=== PATIENT | female | born 1955 | race Caucasian/White ===

== ENCOUNTER 2016-12-09 19:34 | Inpatient (IN) | payer BC ==
[~2016-12-09] VITALS: Ht 152.4 cm; Wt 58.0 kg
--- NOTE | ~2016-12-09 | CO ---
Unit #: [id number] #: [id number] Patient: SHAYNA ORTEGA [id number] [facility] [address] [facility]. [place], [place] [address] [id number] I MR#: [id number] NAME: SHAYNA ORTEGA. ROOM: [facility] Age: 61 Sex: F Admission Date: 12/09/2016 : 1955 Attending Physician: Citlalli Ribeiro M.D. Primary Care Physician: Isis Stock A.P.R.N. Consultation Date: 12/12/2016 CONSULTATION REPORT REASON FOR CONSULTATION Depression, suicide attempt by taking overdose. HISTORY OF PRESENT ILLNESS Ms. Shayna Ortega is a 61-year-old white female, seen in ICU-2, bed 7 at [facility] on 12/12/2016. The patient dressed in hospital attire, lying comfortably in bed. The patient has a sitter, able to answer questions appropriately, made good eye contact. The patient reported that she was under lot of stress and she took overdose of pills. The patient reports that she lives with her son, who is very supportive in 40s. Denied any use of any drugs or alcohol. Denied any hallucination. Currently, denied any suicidal ideation, but admitted recent suicide attempt. The patient's vital signs; temperature 98.2, heart rate 115, respirations 22, blood pressure 144/88, and oxygen saturation 94%. PAST PSYCHIATRIC HISTORY Longstanding history of depression, anxiety, and history of outpatient followup with Dr. Rodriguez in outpatient clinic at [facility]. The patient reported one other previous suicide attempt by taking an overdose in the past. MEDICAL HISTORY Remarkable for history of anxiety and depression. MEDICATION HISTORY The patient is on clonazepam, gabapentin, Paxil, Seroquel, dosage unknown. FAMILY HISTORY AND SOCIAL HISTORY The patient reports that she has a good support system from family. No history of any abuse. No history of any substance abuse, but according to the intake report history of substance abuse. The patient's urine drug screen was positive for benzodiazepine, marijuana, TCA. REVIEW OF SYSTEMS Complete review of system is unremarkable except as mentioned above. MENTAL STATUS EXAMINATION Vital signs, please see above. General appearance; the patient dressed casually in hospital attire, lying comfortably in bed in a propped up position, made good eye contact, cooperative. Attention span and concentration, fair. Speech, regular rate and somewhat rapid. Oriented in time, place, and person. Mood and affect, labile. Thought process, circumstantial. Thought content, denied any suicidal ideation at this time, but suicide attempt by taking an overdose. The patient denied any Unit #: [id number] #: [id number] Patient: SHAYNA ORTEGA hallucination, but reported severe anxiety, still feeling sad and depressed. Recent and remote memory, fair. Language, intact. Fund of knowledge, fair. Insight and judgment, fair to slightly impaired. DIAGNOSES Psychiatric: Major depressive disorder, recurrent, severe, F33.2; anxiety disorder, not otherwise specified, F40.01; cannabis abuse, moderate, F12.20. Secondary diagnosis: Deferred. Medical diagnosis: Please refer to H and P. Stressors: Psychosocial stressor. ASSESSMENT/PLAN 1. Supportive psychotherapy and psychoeducation provided to the patient. 2. Educated about benefits and side effects of medication and course and prognosis of illness. 3. Advised to resume medication slowly. Continue with one-to-one monitoring. Continue with the 72 hour hold. Plan to stabilize the patient and consider transferring the patient to [facility] inpatient treatment for psychiatric stabilization. Please feel free to call if any questions, telephone #[phone]. Dictated by... Neelam Newman/citlali TD: 12/12/2016 23:09 JOB #: [id number] CONSULTATION REPORT Page 1 of 1 X Ramy Zepeda MD X CONSULTATION REPORT
--- NOTE | ~2016-12-09 | FU ---
[facility] Nutrition Therapy DATE: 12/13/16 Patient: MASON BALL Physician: MORCAR Address: [address] [place] [address] Room/Bed: [address] [place] [address], Zip: [place] [address] Admit Date: 12/09/16 Date of : [birth year] Height: 5 0 Weight: 127 58 NUTRITION MONITORING/FOLLOW-UP: Reason: Nutrition follow-up Admitting dx: 61 y/o female admitted with OD/respiratory failure Anthropometrics: Ht: 60", admission wt: 58 kg, current wt: 58 kg, BMI: 25 (overweight) Labs: Glucose 156, AST 43 Meds: PPI, miralax, solu-medrol, kcl, mgso4, zofran prn GI: BM 12/12, denies N/V Skin: No issues, no edema Assessment: Chart reviewed, events noted. Patient extubated on 12/11, has been on 72 hr hold since extubation, plan after hold is for OLOP. She is tolerating a regular diet with no chewing/swallowing difficulties, reports consuming 75-100% of meals which sitter in room confirms. States she does not like the vanilla Ensure and does not wish to receive them any longer- will D/C. Weight stable, glucose well controlled/lytes WNL. See nutrition dx and goals below. Dx: Inadequate protein energy intake r/t clinical condition, ventilator dependence AEB NPO status - RESOLVED No new nutrition diagnosis Intervention: D/C oral supps Monitoring, Evaluation and Goals: 1. EN to meet nutritional needs - NO LONGER RELEVANT 2. Improvement in labs - MET New goal: PO intake > 50% of meals. Recommendations: Continue regular diet, D/C Ensure shakes. Status: Mild nutrition risk [facility] Nutrition Therapy DATE: 12/13/16 Patient: MASON BALL Physician: MORCAR Address: [address] [place] [address] Room/Bed: [address] [place] [address], Zip: [place] [address] Admit Date: 12/09/16 Date of : [birth year] Height: 5 0 Weight: 127 58 Respectphil, Marie Fischer, NURY, LD Food and Nutritional Services [facility] cc: client file
--- NOTE | ~2016-12-09 | EKG ---
PATIENT: MASON BALL UNIT #: [id number] Ventricular Rate: 119 BPM Atrial Rate: 119 BPM P-R Interval: 138 ms QRS Duration: 72 ms Q-T Interval: 338 ms QTC Calculation(Bezet): 475 ms P [place]: 88 degrees Calculated R [place]: 69 degrees Calculated T [place]: 82 degrees Diagnosis Line: Sinus tachycardia Diagnosis Line: Biatrial enlargement Diagnosis Line: Septal infarct (cited on or before 09-DEC-2016) Diagnosis Line: Abnormal ECG Diagnosis Line: When compared with ECG of 03-APR-2013 00:54, Diagnosis Line: Vent. rate has increased BY 42 BPM Diagnosis Line: Non-specific change in ST segment in Inferior Diagnosis Line: leads Diagnosis Line: ST now depressed in Anterior leads Diagnosis Line: Confirmed by SERGIO BARR MD ([id number]) on Diagnosis Line: 12/11/2016 11:15:07 PM INTERPRETING MD: MOMO MUNOZ
--- NOTE | ~2016-12-09 | CR72 ---
[facility] A Service of [facility] RADIOLOGY TEXT RESULTS PATIENT: MASON BALL LOCATION: [address] : [birth year] UNIT #: [id number] AGE: [address]: aT Ronquillo MD SEX: F ORDER DR: [id number] [facility] [address] [facility] [address] [place], [place] [address] [id number] I MR#: [id number] Acc #: [id number] NAME: MASON BALL. : 1955 SEX: F STUDY DATE/TIME: 12/11/2016 04:30 UNIT: [facility] ROOM: [facility] STUDY DESCRIPTION: CR Chest Single View Portable Attending Physician: Ta Ronquillo M.D. Ordering Physician: Mohan Greer M.D. Primary Care Physician: Isis Stock A.P.R.N. MEDICAL IMAGING REPORT This report is preliminary unless electronic signature is present EXAM Portable chest, 12/11 at 04:30 INDICATION Respiratory failure. Overdose 2 days ago. FINDINGS AP portable chest is compared with 12/09/2016. The lungs are emphysematous but clear. No pneumothorax. Heart size normal. ET tube mid trachea. Dictated by... Petr Courtney Jr., M.D. THIS IS AN ELECTRONICALLY VERIFIED REPORT Petr Courtney Jr., M.D. at 12/11/2016 9:23 PM CARLTON/sky TD: 12/11/2016 15:59 JOB #: [id number] MEDICAL IMAGING REPORT Page 1 of 1 COPY
--- NOTE | ~2016-12-09 | HP ---
Unit #: [id number] #: [id number] Patient: MASON BALL [id number] [facility] [address] [facility]. [place], [place] [address] [id number] I MR#: [id number] NAME: MASON BALL. ROOM: [facility] Age: 61 Sex: F Admission Date: 12/09/2016 : 1955 Attending Physician: Ta Ronquillo M.D. Primary Care Physician: Isis Stock A.P.R.N. HISTORY AND PHYSICAL CHIEF COMPLAINT Drug overdose, change in mental status. DISCUSSION This is a 61-year-old female with history of anxiety, depression, bipolar, (she follows with a psychiatrist), history of chronic pain issues, arthritis. She was brought to the emergency room by EMS. EMS was called by her . She was found to be confused. On arrival by EMS, the patient was somnolent. She was given some Narcan, and she was brought to the ER. In the ER she was found to be obtunded, unable to protect her airway, and she has been intubated, on vent. The , who lives with her, is at the bedside. He said that he had been in the hospital recently, had a couple of surgeries, and she has been alone at home. She has been going through a lot. She has a son, who is in home incarceration program currently. She has been undergoing stress with him, also. Today she had an argument with a neighbor. He said we went today to [facility], and she jumped out of the car. She went upstairs. When I went there, she told him, "I will see you on the other side," and then she was found to be confused. He called EMS, and she was brought to the ER. Her Seroquel bottle was found to be empty, which was refilled a long time ago. She had also refilled Klonopin yesterday, but 30 pills were missing, but the Seroquel bottle was also empty, but it was filled 7 months ago. PAST MEDICAL HISTORY As per the , she has history of anxiety, depression, psychiatric issues with bipolar disorder, follows with a psychiatrist). She has history of previous suicide attempts. She has history of substance abuse. PAST SURGICAL HISTORY History of tubal ligation, tonsillectomy. MEDICATIONS FROM HOME 1. Clonazepam. 2. Gabapentin. 3. Paxil. 4. Seroquel, dose unknown. FAMILY HISTORY Unable to obtain from the patient. SOCIAL HISTORY Unit #: [id number] #: [id number] Patient: MASON BALL As per , she smokes 2 packs daily. She uses marijuana. REVIEW OF SYSTEMS Review of systems is unobtainable from the patient. She is on the vent. PHYSICAL EXAMINATION GENERAL: Middle-aged female currently on the vent. VITALS: She is afebrile. Pulse 123, respirations 16. Recent vitals are following - Heart rate 101, respirations 17, blood pressure 91/51, oxygen saturation 100% on the vent. HEENT: Pupils are equal and reactive to light. Head is normocephalic and atraumatic. NECK: Neck is supple. No JVD. LUNGS: Lungs are clear to auscultation. No rhonchi. No wheezing. HEART: S1, S2. Regular rhythm. Tachycardia. ABDOMEN: Abdomen is soft, nontender. EXTREMITIES: Inspection is normal. No cyanosis. No clubbing. No edema. NEUROLOGIC: Unable to do neuro exam. DIAGNOSTIC STUDIES LABORATORY WORKUP: Her urine drug screen is positive for benzodiazepine, positive for marijuana, positive for TCA. Chemistry - Sodium 137, potassium 3.6, chloride 104, CO2 23, glucose 161, BUN 20, creatinine 1.6. LFTs within normal limits. Acetaminophen less than 10, salicylate less than 4, alcohol less than 5. INR is 1. ABG - pH 7.358, CO2 37, pO2 48. Troponin less than 0.05. IMAGING: Chest x-ray shows no infiltrate. ASSESSMENT AND PLAN 1. Drug overdose. Urine toxicology positive for marijuana, positive for benzodiazepine, positive for tricyclic antidepressant. 2. Respiratory failure, on the vent. 3. History of anxiety and depression/bipolar. 4. Chronic pain. 5. Deep venous thrombosis and gastrointestinal prophylaxis. Will place the patient on Protonix and Lovenox. 6. Admit the patient to intensive care unit. 7. Continue vent. 8. Ask pulmonary, Dr. Greer, for management. 9. Keep NPO at this time. Dictated by Maykel Dong M.D. JULIETH/jaylen TD: 12/10/2016 10:27 JOB #: [id number] Unit #: [id number] #: [id number] Patient: MASON BALL HISTORY AND PHYSICAL Page 1 of 1 X X HISTORY AND PHYSICAL
--- NOTE | ~2016-12-09 | DS ---
Unit #: [id number] #: [id number] Patient: MASON ORTEGA [id number] [address] [facility]. [place], [place] [address] [id number] I MR#: [id number] NAME: MASON ORTEGA. ROOM: 335 Age: Sex: F Admission Date: 12/09/2016 : 1955 Discharge Date: Attending Physician: Citlalli Ribeiro M.D. Primary Care Physician: Isis Stock A.P.R.N. DISCHARGE SUMMARY PRINCIPAL DIAGNOSES 1. Acute hypoxic respiratory failure secondary to #2. 2. Polysubstance overdose and suicide attempt including tricyclic antidepressants, benzodiazepines, Seroquel, and marijuana. 3. Aspiration pneumonia, right-sided. 4. Acute chronic obstructive pulmonary disease exacerbation. 5. Hypokalemia. 6. Nonanion-gap metabolic acidosis, now resolved. 7. Thrombocytopenia, now resolved. 8. Hypertension. 9. Bipolar disorder with depression. 10. Mild to moderate tricuspid regurgitation. 11. Tobaccoism. 12. Moderate protein malnutrition. CONSULTANTS 1. Dr. Perkins, Pulmonology. 2. Dr. Zepeda, Psychiatry. PROCEDURES 1. A two-dimensional echocardiogram on December 11, 2016, with ejection fraction of 55%. Mild to moderate tricuspid regurgitation noted. Mild dilatation of aortic root noted. 2. Chest x-ray on December 09, 2016, with no airspace infiltrates. 3. Chest x-ray on December 11, 2016, with emphysematous changes of the lungs. No acute exacerbation. CLINICAL HISTORY AND HOSPITAL COURSE Ms. Ortega is a 61-year-old female brought to the emergency department via EMS after she was found to have decreased mental status at home. Patient made suicidal statements to her prior to taking several medications including Klonopin and Seroquel. Patient was found to have respiratory depression in the emergency department and altered mental status and subsequently required intubation. She was admitted to the ICU. Dr. Perkins was consulted. Patient was started on empiric IV steroids due to an associated COPD exacerbation in addition to IV antibiotics due to a right-sided aspiration pneumonia. Fortunately, patient's mental status improved rather rapidly with only supportive measures, and she was subsequently extubated. After extubation, she has progressed well from a respiratory standpoint. She now has normal oxygen saturations in the high 90s on room air and has minimal wheezing. Will taper steroids very quick on an outpatient. Will also complete a course of antibiotics for associated aspiration pneumonia. Unit #: [id number] #: [id number] Patient: MASON ORTEGA When patient was awake, Psychiatry was consulted. Patient does admit to taking medications in an attempt to hurt herself. She has been under a significant amount of stress at home. The plan is for patient to be transferred to [facility] for further treatment of her underlying depression. I will note, patient was on Seroquel and Paxil at home but has not been taking these for four to five months according to her. However, she has been filling Klonopin every month. I placed her on a lower dose of Klonopin here, and further adjustment in medications can be done at [facility]. Today, patient is awake and alert. She is eating, ambulating to the restroom, not having any difficulty, and will be transferred to [facility]. DISCHARGE CONDITION Stable. DISCHARGE STATUS Transfer to [facility]. DISCHARGE MEDICATIONS 1. Klonopin 1 mg p.o. b.i.d. 2. Restoril 15 mg p.r.n. at bedtime for insomnia. 3. Norvasc 10 mg daily. 4. Augmentin 875 mg p.o. b.i.d. to stop after dose on December 17, 2016. 5. Prednisone 40 mg x1 on December 14, then 20 mg daily on December 15, then discontinue. 6. ProAir HFA 1-2 puffs every 4 hours p.r.n. for shortness of breath. DISCHARGE INSTRUCTIONS 1. Patient is instructed to follow a regular diet. 2. She is to refrain from any further tobacco, illicit drug use, or inappropriate medication use. FOLLOWUP Patient will follow up with her primary care provider, Isis Stock, upon discharge from [facility]. Dictated by... Citlalli Ribeiro M.D. Salo TD: 12/13/2016 14:03 JOB #: [id number] DISCHARGE SUMMARY Page 1 of 1 X Citlalli Ribeiro MD DISCHARGE SUMMARY
--- NOTE | ~2016-12-09 | A ---
[facility] Nutrition Therapy DATE: 12/10/16 Patient: MASON BALL Physician: MORCAR Address: [address] [place] [address] Room/Bed: [address], Zip: [place] [address] Admit Date: 12/09/16 Date of : [birth year] Height: 5 0 Weight: 127 58 NUTRITIONAL ASSESSMENT: REASON: NPO STATUS IN ICU, intubated 61 yo female admitted for OD and respiratory failure PMH: Anxiety, depression, bipolar disorder, smoker Anthropometrics: Ht: 5'0" Wt: 58 kg BMI: 25 Labs: K+ 3.3 Cl- 112 Gluc 134 Ca++ 7.9 Alb 3.3 Meds: Propofol @ 9.4 mL/hr, D5%, protonix, MgSO4, KCl, NaCl, zofran I/O & Bowel function: 998/315, last BM unknown Skin Integrity: no breakdown or edema noted Estimated Nutrition Needs: [id number] kcals (25-30 kcals/kg) 70-87 grams protein (1.2-1.5 grams/kg) Fluids consistent with kcal needs or per MD Diet: NPO Assessment: Chart reviewed, events noted. 61 yo female admitted for OD and respiratory failure. Pt is intubated and sedated in the ICU. Propofol is providing an additional 248 kcals from lipids at this time. RN reports that ventilator wean will likely be attempted today or tomorrow. No plans for nutrition support at this time. No family in room to provide nutritional history. Please see recommendations below. Dx: Inadequate protein-energy intake RT clinical condition, ventilator dependence AEB NPO status. Intervention: 1. EN if the pt remains intubated Monitoring, Evaluation and Goals: 1. Enteral nutrition; initiate if the pt remains intubated 2. Improve labs; K+, glucose Recommendations: 1. If the pt remains intubated, recommend initiating enteral nutrition with Jevity 1.5 @ [facility] Therapy DATE: 12/10/16 Patient: MASON BALL Physician: MORCAR Address: [address] [place] [address] Room/Bed: [address], Zip: [place] [address] Admit Date: 12/09/16 Date of : [birth year] Height: 5 0 Weight: 127 58 25 mL/hr + 30 mL Prostat once daily. Increase by 10 mL q 8 hrs as tolerated to goal of 35 mL/hr + 30 mL Prostat once daily to provide: 1608 kcals (total with propofol)/ 69 grams protein/ 638 mL free H20 Free H20 flushes per MD 2. Once propofol is discontinued, increase Jevity 1.5 to 45 ml/hr and D/C Prostat. This would provide: 1620 kcals/ 69 grams protein/ 821 mL free H20 3. If the pt is extubated, recommend CATERPILLAR TRACTOR OPERATOR evaluation (if pt intubated for >24 hrs). Advance diet per CATERPILLAR TRACTOR OPERATOR recommendations. No additional dietary restrictions recommended at this time. Pt is at moderate-severe nutritional risk. RD will follow hospital course per protocol. Respectfully, NISHI MCCLAIN RD, LD Food and Nutritional Services [facility] cc: client file
--- NOTE | ~2016-12-09 | CR72 ---
[facility] Service of [facility] RADIOLOGY TEXT RESULTS PATIENT: MASON BALL LOCATION: [address] : [birth year] UNIT #: [id number] AGE: [address]: Ta Ronquillo MD SEX: F ORDER DR: [id number] [facility] [address] [facility] [address] [place], [place] [address] [id number] I MR#: [id number] Acc #: [id number] NAME: MASON BALL. : 1955 SEX: F STUDY DATE/TIME: 12/09/2016 20:02 UNIT: [facility] ROOM: [facility] STUDY DESCRIPTION: CR Chest Single View Portable Attending Physician: Ta Ronquillo M.D. Ordering Physician: Ed Doctor [id number] [facility] Primary Care Physician: Isis Stock A.P.R.N. MEDICAL IMAGING REPORT This report is preliminary unless electronic signature is present EXAM Portable chest HISTORY ETT placement. FINDINGS ETT tip is 7.5 cm above the shahrzad. NG tube extends into the stomach. Mild hyperinflation of both lungs. No airspace infiltrates or effusions are identified. The superior lung apices are partly excluded. Dictated by... Kin Gagnon M.D. THIS IS AN ELECTRONICALLY VERIFIED REPORT Kin Gagnon M.D. at 12/10/2016 1:19 PM DFL/rnr TD: 12/10/2016 01:16 JOB #: [id number] MEDICAL IMAGING REPORT Page 1 of 1 COPY
--- NOTE | ~2016-12-09 | CO ---
Unit #: [id number] #: [id number] Patient: SHAYNA ORTEGA [id number] [address] [address] [id number] I MR#: [id number] NAME: SHAYNA ORTEGA. ROOM: 335 Age: 61 Sex: F Admission Date: 12/09/2016 : 1955 Attending Physician: Citlalli Ribeiro M.D. Primary Care Physician: Isis Stock A.P.R.N. Consultation Date: 12/13/2016 CONSULTATION REPORT REASON FOR CONSULTATION Followup. HISTORY OF PRESENT ILLNESS Ms. Shayna Ortega is a 61-year-old female, seen in room 335, bed 1, on 12/14/2016. The patient was admitted with overdose and transferred from intensive care unit to room 335. The patient was pleasant, cooperative. The patient has a sitter and able to eat good, reports anxiety/depression is better. The patient still somewhat anxious, wanted her medication to be increased. The patient's vital signs are stable. Currently denying any thoughts of harming self or others. Vital signs, 97.7, 104, 20, and 154/84. REVIEW OF SYSTEMS Complete review of systems is unremarkable. MENTAL STATUS EXAMINATION General appearance: Patient dressed in hospital attire sitting comfortably in bed eating her lunch. Speech, rapid in rate. Thought process, circumstantial. The patient's mood and affect labile. Thought process, the patient denied any thoughts of harming self or others, denied any psychotic symptoms. Thought process coherent. Recent and remote memory, fair. Language intact. Fund of knowledge fair. Insight and judgment fair to slightly impaired. DIAGNOSIS Major depressive disorder, recurrent, severe, F33.2. ASSESSMENT/PLAN 1. Supportive psychotherapy, psychoeducation provided to the patient. 2. Educated about benefits and side effects of medication, and course and prognosis of illness. 3. Advised to continue with current medication with the plan to consider transferring the patient to [facility] for inpatient psychiatric treatment and if needed consider further adjustment of medication. 4. Please feel free to call if any questions, telephone number [phone]. Unit #: [id number] #: [id number] Patient: SHAYNA ORTEGA Dictated by... Neelam Newman/nicanor TD: 12/14/2016 08:27 JOB #: [id number] CONSULTATION REPORT Page 1 of 1 X Ramy Zepeda MD CONSULTATION REPORT
--- NOTE | ~2016-12-09 | CR72 ---
[facility] A Service of [facility] & [facility] RADIOLOGY TEXT RESULTS PATIENT: MASON BALL LOCATION: [facility] [id number] : 57 UNIT #: [id number] AGE: [address]: Citlalli Ribeiro MD SEX: F ORDER DR: [id number] [facility] [address] [facility] [address] [place], [place] [address] [id number] I MR#: [id number] Acc #: [id number] NAME: MASON BALL. : 1955 SEX: F STUDY DATE/TIME: 12/12/2016 UNIT: [facility] ROOM: [facility] STUDY DESCRIPTION: CR Chest Single View Portable Attending Physician: Citlalli Ribeiro M.D. Ordering Physician: Mohan Greer M.D. Primary Care Physician: Isis Stock A.P.R.N. MEDICAL IMAGING REPORT This report is preliminary unless electronic signature is present EXAM Portable chest, 12/12/2016, at 03:59. INDICATIONS Overdose. Respiratory failure. Ventilator patient. FINDINGS AP portable chest compared with 12/11/2016. Heart size normal. Patient has been extubated and the NG tube has been removed. There is increasing infiltrate or atelectasis in the bases, right greater than left. There is a small right effusion. There is underlying emphysema. No pneumothorax. Dictated by... Petr Courtney Jr., M.D. THIS IS AN ELECTRONICALLY VERIFIED REPORT Petr Courtney Jr., M.D. at 12/12/2016 9:11 PM CARLTON/reginald TD: 12/12/2016 11:40 JOB #: [id number] MEDICAL IMAGING REPORT Page 1 of 1 COPY
--- NOTE | ~2016-12-09 | CO ---
Unit #: [id number] #: [id number] Patient: MASON BALL [id number] [address] [place], [place] [address] [id number] I MR#: [id number] NAME: MASON BALL. ROOM: [facility] Age: 61 Sex: F Admission Date: 12/09/2016 : 1955 Attending Physician: Ta Ronquillo M.D. Primary Care Physician: Isis Stock A.P.R.N. CONSULTATION REPORT REASON FOR CONSULTATION Critical care management and respiratory failure. CHIEF COMPLAINT Drug overdose. HISTORY OF PRESENT ILLNESS This 61-year-old female with past medical history of anxiety, depression, bipolar disorder, history of chronic pain, and arthritis presents with a complaint of altered mental status and did not respond to the Narcan and was intubated on the ventilator. The patient had an argument with the neighbor and went to the [facility] and she was found confused and her SEROquel bottle was found empty and had refilled a long time ago and there were 30 pills missing. I am seeing her at the bedside. Currently on a ventilator, intubated, and sedated. REVIEW OF SYSTEMS Unobtainable. PAST MEDICAL HISTORY Anxiety, depression, and bipolar disorder. SURGICAL HISTORY Tubal ligation and tonsillectomy. MEDICATIONS 1. Clonazepam. 2. Gabapentin. 3. Paxil. 4. SEROquel. FAMILY HISTORY Unable to obtain. PHYSICAL EXAMINATION VITAL SIGNS: Temperature 98, pulse 67, respirations 12, and blood pressure is 110/70. NEUROLOGIC: Sedated, intubated. HEENT: PERRLA. EOMI. NECK: Supple. No JVD. CHEST: Bilateral air entry. Bilateral mild rhonchi. GI: Nontender. Soft. Bowel sounds positive. EXTREMITIES: No edema. SKIN: No ulcer. Unit #: [id number] #: [id number] Patient: MASON BALL LYMPHATIC: No lymphadenopathy. DIAGNOSTIC STUDIES Labs and imaging have been reviewed. ASSESSMENT AND PLAN 1. Acute hypoxic respiratory failure. 2. Drug overdose. 3. Anxiety/depression. 4. Chronic pain. Plan is to continue patient on ventilator support. She is off pressors now. Repeat blood gas. Continue aggressive IV hydration. Antibiotics empirically for possible aspiration. Repeat chest x-ray. Repeat blood gas and troponin. Two-D echo. Patient will be closely monitored. Please see orders for detailed plan. Thank you very much for this consultation. Dictated by... Neelam Linares TD: 12/10/2016 12:55 JOB #: [id number] CONSULTATION REPORT Page 1 of 1 X Mohan Greer MD X CONSULTATION REPORT
[~2016-12-09 19:34] MED LIST: CHOLESTEROL MED; KLONOPIN2 MG PO; LOVAZA1 G PO; NORVASC PO; ORUDIS75 M1 PO; PAXIL PO; SEROQUEL400 MG PO; VICODIN 5/1 TAB 5/50 PO
[2016-12-09 20:15] LABS: POC - TROPONIN <0.05 ng/mL (<=0.05)
[2016-12-09 20:37] LABS: ARTERIAL BLD GAS O2 SATURATION 83.3 % (90.0-100.0); ARTERIAL BLOOD GAS ART SITE LEFT BRACHIAL; ARTERIAL BLOOD GAS DELIVERY VENT; ARTERIAL BLOOD GAS HCO3 21.1 mmol/L; ARTERIAL BLOOD GAS MET HB 1.1 %sat (0.0-2.0); ARTERIAL BLOOD GAS PCO2 37.5 mmHg (35.0-45.0); ARTERIAL BLOOD GAS PO2 48.2 mmHg (80.0-100); ARTERIAL BLOOD GAS VENT MODE AC; ARTERIAL BLOOD GAS pH 7.358 (7.350-7.450); ARTERIAL DRAW? YES
[2016-12-09 21:09] LABS: PARTIAL THROMBOPLASTIN TIME 25.2 SECONDS (23.5-31.3)
[2016-12-09 21:29] LABS: ALBUMIN SERUM 4.1 g/dL (3.5-5.0); ALKALINE PHOSPHATASE 67 U/L (32-92); ALT (SGPT) 18 U/L (10-40); AST (SGOT) 28 U/L (10-42); BILIRUBIN, DIRECT 0.2 mg/dL (0.0-0.2); BILIRUBIN,INDIRECT 1.1 mg/dL (0.0-0.9); BILIRUBIN,TOTAL 1.3 mg/dL (0.2-2.0); BLOOD UREA NITROGEN 20 mg/dL (9-23); CARBON DIOXIDE 23 mmol/L (22-31); CHLORIDE 104 mmol/L (100-111); CREATININE SERUM 1.6 mg/dL (0.6-1.4); GLOM FILT RATE Estimated 34.7 mL/min (>60); GLUCOSE FASTING 161 mg/dL (70-110); POTASSIUM 3.6 mmol/L (3.5-5.1); PROTEIN TOTAL SERUM 7.2 g/dL (6.0-8.3); SALICYLATE <4.0 mg/dL; SODIUM 137 mmol/L (135-145)
[2016-12-09 21:30] LABS: ACETAMINOPHEN <10 ug/mL; ALCOHOL BLOOD <5 mg/dL (0)
[2016-12-09 22:18] LABS: AMPHETAMINE NEG (NEG); BARBITURATES NEG (NEG); BENZODIAZEPINES POS (NEG); COCAINE NEG (NEG); MARIJUANA POS (NEG); OPIATES NEG (NEG); TRICYCLIC ANTIDEPRESSANTS POS (NEG); U METHADONE NEG (NEG)
[2016-12-09 23:58] LABS: ARTERIAL BLD GAS O2 SATURATION 84.1 % (90.0-100.0); ARTERIAL BLOOD GAS CARBOXY HB 1.5 %sat (0.0-9.0); ARTERIAL BLOOD GAS HCO3 19.3 mmol/L; ARTERIAL BLOOD GAS MET HB 0.9 %sat (0.0-2.0); ARTERIAL BLOOD GAS PCO2 35.4 mmHg (35.0-45.0); ARTERIAL BLOOD GAS pH 7.345 (7.350-7.450)
[2016-12-09 23:59] LABS: ARTERIAL BLOOD GAS ART SITE RIGHT BRACHIAL; ARTERIAL BLOOD GAS DELIVERY VENT; ARTERIAL BLOOD GAS PO2 55.2 mmHg (80.0-100); ARTERIAL BLOOD GAS VENT MODE AC; ARTERIAL DRAW? YES
[2016-12-10] MEDS ORDERED: AMLODIPINE BESYL5 MG PO (01:34)
[2016-12-10] MEDS ORDERED: PAROXETINE HCL10 MG PO (01:34)
[2016-12-10] MEDS ORDERED: CYCLOBENZAPRINE5 MG PO (01:35)
[2016-12-10] MEDS ORDERED: DICLOFENAC SODI25 MG PO (01:36)
[2016-12-10] MEDS ORDERED: SEROQUEL PO (01:36)
[2016-12-10] MEDS ORDERED: KLONOPIN2 MG PO (01:37)
[2016-12-10] MEDS ORDERED: NEURONTIN600 MG PO (01:37)
[2016-12-10 03:58] LABS: ARTERIAL BLOOD GAS CARBOXY HB 0.6 %sat (0.0-9.0); ARTERIAL BLOOD GAS HCO3 21.7 mmol/L; ARTERIAL BLOOD GAS MET HB 0.8 %sat (0.0-2.0); ARTERIAL BLOOD GAS PCO2 43.8 mmHg (35.0-45.0); ARTERIAL BLOOD GAS pH 7.304 (7.350-7.450)
[2016-12-10 04:03] LABS: ARTERIAL BLD GAS O2 SATURATION 90.2 % (90.0-100.0); ARTERIAL BLOOD GAS PO2 64.3 mmHg (80.0-100); ARTERIAL DRAW? YES
[2016-12-10 04:04] LABS: ARTERIAL BLOOD GAS ART SITE RIGHT BRACHIAL; ARTERIAL BLOOD GAS DELIVERY VENT; ARTERIAL BLOOD GAS VENT MODE A/C
[2016-12-10 06:10] LABS: BASOPHIL% 0.6 % (0-2.5); DIFF IND NO; EOSINOPHIL% 0.7 % (0.0-7.0); HEMATOCRIT 32.9 % (35.0-45.0); HEMOGLOBIN 10.9 gm/dL (12.0-16.0); LYMPHOCYTE# 1.8 X10e3 (1.0-3.5); LYMPHOCYTE% 30.6 % (17.0-45.0); MEAN CELL VOLUME 97.2 FL (83-96); MEAN CORPUSCULAR HEMOGLOBIN 32.3 PG (28-34); MEAN CORPUSCULAR HGB CONC 33.2 g/dL (30-36); MONOCYTE# 0.3 X10e3 (0-1.0); MONOCYTE% 5.3 % (3.0-12.0); NEUTROPHIL# 3.7 X10e3 (1.5-7.1); NEUTROPHIL% 62.8 % (40-75); PLATELET COUNT 138 X10e3 (140-420); RED BLOOD COUNT 3.38 X10e (3.90-5.30); RED CELL DISTRIBUTION WIDTH 13.4 % (11.0-15.5); WHITE BLOOD COUNT 5.9 X10e3 (4.0-10.5)
[2016-12-10 06:48] LABS: URINE APPEARANCE CLOUDY; URINE BILIRUBIN NEG (NEG); URINE BLOOD NEG (NEG); URINE COLOR YELLOW; URINE GLUCOSE NEG (NEG); URINE KETONE 2+ (NEG); URINE LEUKOCYTE ESTERASE NEG (NEG); URINE NITRATE NEG (NEG); URINE PROTEIN 1+ (NEG)
[2016-12-10 06:50] LABS: URINE BACTERIA AUWI NEG (NEGATIVE); URINE SQUAMOUS EPITHELIAL CELL MOD /[HPF]
[2016-12-10 07:06] LABS: CULTURE INDICATED? NO; URINE MUCUS PRESENT
[2016-12-10 07:07] LABS: URINE TRANSITIONAL EPI CELLS FEW /[HPF]
[2016-12-10 07:49] LABS: ALBUMIN SERUM 3.3 g/dL (3.5-5.0); ALKALINE PHOSPHATASE 54 U/L (32-92); ALT (SGPT) 14 U/L (10-40); AST (SGOT) 22 U/L (10-42); BILIRUBIN,TOTAL 0.9 mg/dL (0.2-2.0); BLOOD UREA NITROGEN 19 mg/dL (9-23); BUN/CREATININE RATIO 21.11; CALCIUM SERUM 7.9 mg/dL (8.4-10.2); CARBON DIOXIDE 18 mmol/L (22-31); CHLORIDE 112 mmol/L (100-111); CREATININE SERUM 0.9 mg/dL (0.6-1.4); GLOM FILT RATE Estimated 69.5 mL/min (>60); GLUCOSE FASTING 134 mg/dL (70-110); POTASSIUM 3.3 mmol/L (3.5-5.1); PROTEIN TOTAL SERUM 5.8 g/dL (6.0-8.3); SODIUM 140 mmol/L (135-145)
[2016-12-10 08:38] LABS: PROCALCITONIN <0.05 NG/ML
[2016-12-10 14:10] LABS: ARTERIAL BLOOD GAS HCO3 20.5 mmol/L; ARTERIAL BLOOD GAS MET HB 0.9 %sat (0.0-2.0); ARTERIAL BLOOD GAS PCO2 38.2 mmHg (35.0-45.0); ARTERIAL BLOOD GAS pH 7.339 (7.350-7.450)
[2016-12-10 14:17] LABS: ARTERIAL BLOOD GAS ALLEN TEST NORMAL; ARTERIAL BLOOD GAS ART SITE RIGHT BRACHIAL; ARTERIAL BLOOD GAS DELIVERY VENT; ARTERIAL BLOOD GAS VENT MODE A/C; ARTERIAL DRAW? YES
[2016-12-10 14:33] LABS: SALICYLATE <4.0 mg/dL
[2016-12-10 14:34] LABS: ACETAMINOPHEN <10 ug/mL
[2016-12-11 03:54] LABS: ARTERIAL BLD GAS O2 SATURATION 98.6 % (90.0-100.0); ARTERIAL BLOOD GAS CARBOXY HB 0.1 %sat (0.0-9.0); ARTERIAL BLOOD GAS HCO3 20.2 mmol/L; ARTERIAL BLOOD GAS MET HB 0.7 %sat (0.0-2.0); ARTERIAL BLOOD GAS PCO2 40.6 mmHg (35.0-45.0); ARTERIAL BLOOD GAS pH 7.304 (7.350-7.450)
[2016-12-11 04:19] LABS: ARTERIAL DRAW? YES
[2016-12-11 04:20] LABS: ARTERIAL BLOOD GAS ART SITE RIGHT BRACHIAL; ARTERIAL BLOOD GAS DELIVERY VENT; ARTERIAL BLOOD GAS VENT MODE A/C
[2016-12-11 06:10] LABS: BASOPHIL% 0.1 % (0-2.5); HEMATOCRIT 34.3 % (35.0-45.0); HEMOGLOBIN 11.2 gm/dL (12.0-16.0); LYMPHOCYTE# 0.6 X10e3 (1.0-3.5); LYMPHOCYTE% 10.1 % (17.0-45.0); MEAN CELL VOLUME 96.6 FL (83-96); MEAN CORPUSCULAR HEMOGLOBIN 31.7 PG (28-34); MEAN CORPUSCULAR HGB CONC 32.8 g/dL (30-36); MEAN PLATELET VOLUME 9.5 FL (6.5-11.5); MONOCYTE# 0.2 X10e3 (0-1.0); MONOCYTE% 4.2 % (3.0-12.0); NEUTROPHIL# 4.8 X10e3 (1.5-7.1); NEUTROPHIL% 85.6 % (40-75); PLATELET COUNT 147 X10e3 (140-420); RED BLOOD COUNT 3.55 X10e (3.90-5.30); RED CELL DISTRIBUTION WIDTH 13.5 % (11.0-15.5); WHITE BLOOD COUNT 5.6 X10e3 (4.0-10.5)
[2016-12-11 06:12] LABS: DIFF IND NO
[2016-12-11 07:13] LABS: ALBUMIN SERUM 2.9 g/dL (3.5-5.0); BILIRUBIN,TOTAL 0.5 mg/dL (0.2-2.0); BUN/CREATININE RATIO 21.25; CALCIUM SERUM 8.2 mg/dL (8.4-10.2); CREATININE SERUM 0.8 mg/dL (0.6-1.4); GLOM FILT RATE Estimated 80.2 mL/min (>60); POTASSIUM 4.1 mmol/L (3.5-5.1); PROTEIN TOTAL SERUM 5.3 g/dL (6.0-8.3)
[2016-12-11 12:22] LABS: ARTERIAL BLD GAS O2 SATURATION 97.1 % (90.0-100.0); ARTERIAL BLOOD GAS CARBOXY HB 0.3 %sat (0.0-9.0); ARTERIAL BLOOD GAS HCO3 18.7 mmol/L; ARTERIAL BLOOD GAS MET HB 0.7 %sat (0.0-2.0); ARTERIAL BLOOD GAS PCO2 37.1 mmHg (35.0-45.0); ARTERIAL BLOOD GAS pH 7.312 (7.350-7.450)
[2016-12-11 12:23] LABS: ARTERIAL BLOOD GAS ALLEN TEST NORMAL; ARTERIAL BLOOD GAS ART SITE LEFT BRACHIAL; ARTERIAL BLOOD GAS DELIVERY VENT; ARTERIAL BLOOD GAS VENT MODE CPAP; ARTERIAL DRAW? YES
[2016-12-12 03:57] LABS: ARTERIAL BLOOD GAS CARBOXY HB 0.6 %sat (0.0-9.0); ARTERIAL BLOOD GAS HCO3 21.5 mmol/L; ARTERIAL BLOOD GAS MET HB 1.1 %sat (0.0-2.0); ARTERIAL BLOOD GAS PCO2 37.3 mmHg (35.0-45.0); ARTERIAL BLOOD GAS pH 7.369 (7.350-7.450)
[2016-12-12 04:18] LABS: ARTERIAL BLOOD GAS ART SITE LEFT BRACHIAL; ARTERIAL BLOOD GAS DELIVERY NASAL CANNULA; ARTERIAL BLOOD GAS PO2 74.1 mmHg (80.0-100); ARTERIAL DRAW? YES
[2016-12-12 05:28] LABS: BASOPHIL% 0.5 % (0-2.5); HEMATOCRIT 33.6 % (35.0-45.0); HEMOGLOBIN 11.1 gm/dL (12.0-16.0); LYMPHOCYTE# 0.3 X10e3 (1.0-3.5); LYMPHOCYTE% 3.8 % (17.0-45.0); MEAN CORPUSCULAR HEMOGLOBIN 31.7 PG (28-34); MEAN PLATELET VOLUME 9.3 FL (6.5-11.5); MONOCYTE# 0.2 X10e3 (0-1.0); MONOCYTE% 2.1 % (3.0-12.0); NEUTROPHIL# 7.4 X10e3 (1.5-7.1); NEUTROPHIL% 93.6 % (40-75); PLATELET COUNT 129 X10e3 (140-420); RED CELL DISTRIBUTION WIDTH 13.4 % (11.0-15.5); WHITE BLOOD COUNT 7.9 X10e3 (4.0-10.5)
[2016-12-12 05:37] LABS: DIFF IND NO
[2016-12-12 06:11] LABS: ALBUMIN SERUM 3.1 g/dL (3.5-5.0); BILIRUBIN,TOTAL 0.2 mg/dL (0.2-2.0); CALCIUM SERUM 8.5 mg/dL (8.4-10.2); CREATININE SERUM 0.6 mg/dL (0.6-1.4); GLOM FILT RATE Estimated 99.1 mL/min (>60); POTASSIUM 3.4 mmol/L (3.5-5.1)
[2016-12-13 08:16] LABS: BASOPHIL# 0.1 X10e3 (0-0.3); BASOPHIL% 1.3 % (0-2.5); HEMATOCRIT 34.7 % (35.0-45.0); HEMOGLOBIN 11.7 gm/dL (12.0-16.0); LYMPHOCYTE# 0.4 X10e3 (1.0-3.5); LYMPHOCYTE% 4.8 % (17.0-45.0); MEAN CELL VOLUME 95.2 FL (83-96); MEAN CORPUSCULAR HEMOGLOBIN 32.1 PG (28-34); MEAN CORPUSCULAR HGB CONC 33.7 g/dL (30-36); MEAN PLATELET VOLUME 8.6 FL (6.5-11.5); MONOCYTE# 0.3 X10e3 (0-1.0); MONOCYTE% 3.3 % (3.0-12.0); NEUTROPHIL# 8.2 X10e3 (1.5-7.1); NEUTROPHIL% 90.6 % (40-75); PLATELET COUNT 144 X10e3 (140-420); RED BLOOD COUNT 3.65 X10e (3.90-5.30); RED CELL DISTRIBUTION WIDTH 13.5 % (11.0-15.5); WHITE BLOOD COUNT 9.1 X10e3 (4.0-10.5)
[2016-12-13 08:23] LABS: DIFF IND NO
[2016-12-13 08:56] LABS: ALBUMIN SERUM 3.6 g/dL (3.5-5.0); BILIRUBIN,TOTAL 0.7 mg/dL (0.2-2.0); BUN/CREATININE RATIO 27.14; CALCIUM SERUM 9.1 mg/dL (8.4-10.2); CREATININE SERUM 0.7 mg/dL (0.6-1.4); GLOM FILT RATE Estimated 94.2 mL/min (>60); PROTEIN TOTAL SERUM 6.8 g/dL (6.0-8.3)
== END 2016-12-13 23:15 | DRG 917 ==
LOC: CED 19:34 → CICCU2 22:40 → C3A PCU 22:40 → CEDOF 22:40 → CICCU2 22:47 → CEDOF 22:47 → CED 22:47 → CICCU2 12-10 00:37 → CEDOF 12-10 00:37 → CICCU2 12-12 09:35 → C3A PCU 12-12 17:17
PROVIDERS: Emergency Medicine; Internal Medicine; Internal Medicine Pulmonary Disease; Nurse Practitioner
PROC: 5A1945Z Respiratory Ventilation, 24-96 Consecutive Hours (ICD-10-PCS; 2016-12-09)
PROC: 0BH17EZ Insertion of Endotracheal Airway into Trachea, Via Natural or Artificial Opening (ICD-10-PCS; 2016-12-09)
PROC: B246YZZ Ultrasonography of Right and Left Heart using Other Contrast (ICD-10-PCS; principal; 2016-12-11)
DX: T43.012A Poisoning by tricyclic antidepressants, intentional self-harm, initial encounter (principal); G92 Toxic encephalopathy; J96.01 Acute respiratory failure with hypoxia; R57.9 Shock, unspecified; J69.0 Pneumonitis due to inhalation of food and vomit; E87.2 Acidosis; D69.6 Thrombocytopenia, unspecified; J44.1 Chronic obstructive pulmonary disease with (acute) exacerbation; E44.0 Moderate protein-calorie malnutrition; F33.2 Major depressive disorder, recurrent severe without psychotic features; E87.6 Hypokalemia; I10 Essential (primary) hypertension; F17.210 Nicotine dependence, cigarettes, uncomplicated; T42.4X2A Poisoning by benzodiazepines, intentional self-harm, initial encounter; T43.592A Poisoning by other antipsychotics and neuroleptics, intentional self-harm, initial encounter; T40.7X2A Poisoning by cannabis (derivatives), intentional self-harm, initial encounter; F12.20 Cannabis dependence, uncomplicated; F41.9 Anxiety disorder, unspecified
CPT/HCPCS: 31500; 36600; 51702; 71010; 80048; 80053; 80076; 80307; 81003; 82308; 82553; 82803; 83605; 83735; 84132; 84484; 85025; 85610; 85730; 93005; 93306; 94002; 94003; 94640; 94760; 94761; 96360; 97162; 97166; 99291; C9113; G0480; G8978-GP; G8979-GP; G8980-GP; G8987-GO; G8988-GO; G8989-GO; J0330; J1650; J2543; J2920; J2930

== ENCOUNTER 2016-12-13 14:02 | Inpatient (IN) | payer BC ==
[~2016-12-13] VITALS: Ht 157.5 cm; Wt 53.1 kg
--- NOTE | ~2016-12-13 | HP ---
Unit #: [id number] #: [id number] Patient: SHAYNA BALL [id number] [facility] [address] [place] [address] [id number] I MR#: [id number] NAME: SHAYNA BALL ROOM: P131 Age: 61 Sex: F Admission Date: 12/13/2016 : 1955 Attending Physician: Franklyn Rodriguez M.D. Admitting Physician: Franklyn Rodriguez M.D. Primary Care Physician: Isis Stock A.P.R.N. HISTORY AND PHYSICAL Shayna is a 61-year-old female admitted on 12/13/[address] [place] [address] for attempted suicide by overdose. She was recently admitted to [facility] on 12/09/2016 for overdose. I reviewed the history and physical from that admission and there are no changes. Dictated by... Keith Xie/rose TD: 12/27/2016 17:46 JOB #: [id number] HISTORY AND PHYSICAL Page 1 of 1 X CHANTAL CRAWFORD APRN HISTORY AND PHYSICAL
--- NOTE | ~2016-12-13 | PA ---
Unit #: [id number] #: [id number] Patient: MASON ORTEGA [id number] [facility] [address] [place] [address] [id number] I MR#: [id number] NAME: MASON ORTEGA. ROOM: P131 Age: 61 Sex: F Admission Date: 12/13/2016 : 1955 Date of Assessment: Attending Physician: Franklyn Rodriguez M.D. Admitting Physician: Franklyn Rodriguez M.D. Primary Care Physician: Isis Stock A.P.R.N. PSYCHIATRIC ASSESSMENT DATE OF SERVICE 12/14/2016. INFORMANTS The patient, reliable; [facility], reliable; and [facility] records, reliable. CHIEF COMPLAINT Overdose. HISTORY OF PRESENT ILLNESS Ms. Ortega is a 61-year-old woman, who is an outpatient of [facility] in [facility]. She reported that she had stopped taking her psychiatric medication after her suffered a couple of serious medical complications. She then became embroiled in arguments with her son who is abusing drugs and with her who is ill; in a fit of rage, she took an overdose of some of her psychiatric medication, reportedly Seroquel and was taken to [facility] for evaluation and was admitted. During that time, she was placed on a 72-hour hold and when she was medically stabilized, [facility]. PAST PSYCHIATRIC HISTORY The patient has been seen at [facility] for some years for depression. FAMILY PSYCHIATRIC HISTORY There is a family history of chemical dependence and depression. SOCIAL HISTORY The patient is and has grown children. She is on long-term disability and lives with her . Their son is intermittently living with them as well. PAST MEDICAL HISTORY Please see medical records for details. MEDICATIONS Please see MAR. ALLERGIES No known medication allergies. Unit #: [id number] #: [id number] Patient: MASON ORTEGA SUBSTANCE USE HISTORY No current history of chemical dependence or abuse. MENTAL STATUS EXAMINATION Ms. Hanson presented as a mildly disheveled woman, who appeared her stated age. She was pleasant and cooperative with the examination. Her speech was spontaneous and easily understood. Her musculoskeletal examination was calm. Her mood was mildly anxious with a congruent affect. She was alert and fully oriented. Her memory and concentration were intact. Her thought processes were logical with no psychosis. She denied suicidal ideation, intent, or plan. Insight and judgment were intact. Fund of knowledge and abstraction were intact. ASSETS AND LIABILITIES The patient has been compliant with outpatient medications until recently and has a history of good response. Liabilities include family stress. ADMITTING DIAGNOSES AXIS I: Major depressive disorder and posttraumatic stress disorder by history. AXIS II: No diagnosis. AXIS III: Recent overdose. AXIS IV: AXIS V: PSYCHIATRIC PLAN The patient was admitted overnight and returned to her previous medications with the exception of Seroquel. This morning, the patient is pleasant and cooperative and contracts for safety with me for future security outside of the hospital. She has an appointment in my office scheduled for tomorrow afternoon, and assured me that she was safe and would make this appointment. Given my long acquaintance with this lady and feeling that she has given me a reliable contract for safety, she was discharged at her request. Dictated by... Franklyn Rodriguez M.D. JOVANA/citlali TD: 12/14/2016 20:20 JOB #: [id number] PSYCHIATRIC ASSESSMENT Page 1 of 1 X Franklyn Rodriguez MD PSYCHIATRIC ASSESSMENT
--- NOTE | ~2016-12-13 | DS ---
Unit #: [id number] #: [id number] Patient: SHAYNA ORTEGA [id number] [facility] [address] [place] [address] [id number] I MR#: [id number] NAME: SHAYNA ORTEGA. ROOM: P131 Age: 61 Sex: F Admission Date: 12/13/2016 : 1955 Discharge Date: 12/14/2016 Attending Physician: Franklyn Rodriguez M.D. Primary Care Physician: Isis Stock A.P.R.N. DISCHARGE SUMMARY REASON FOR ADMISSION Shayna Ortega is a 61-year-old woman who is an outpatient [facility]. Apparently during a family argument, the patient became enraged and took an overdose of her Seroquel which she immediately regretted. She was briefly admitted to [facility] and then transferred to [facility]. DIAGNOSTIC STUDIES LABORATORY RESULTS: Please see hospital chart. HOSPITAL COURSE Shayna was admitted overnight and placed on suicide precautions and her previous medications. After conducting a complete psychiatric interview with her, based on my previous knowledge of this patient through outpatient services, she was able to give a reliable contract for safety in the outpatient setting. She highly regretted her overdose attempt and stated that she would be fine at home. She has an appointment with me in my office tomorrow afternoon and guaranteed me that she would make it. In light of my long acquaintance with this patient and her ability to contract for safety, she was discharged in stable condition. DISCHARGE DIAGNOSES AXIS I: Major depressive disorder; posttraumatic stress disorder. AXIS II: No diagnosis. AXIS III: Recent overdose. AXIS IV: AXIS V: DISCHARGE INSTRUCTIONS Follow up with [facility] tomorrow. DISCHARGE MEDICATIONS Please see MAR. CONDITION AT DISCHARGE Improved. PROGNOSIS Good. DIET AND ACTIVITY Per primary care doctor. Unit #: [id number] #: [id number] Patient: SHAYNA ORTEGA Dictated by... Franklyn Rodriguez M.D. MRH/modl TD: 12/14/2016 21:10 JOB #: [id number] DISCHARGE SUMMARY Page 1 of 1 X Franklyn Rodriguez MD DISCHARGE SUMMARY
[~2016-12-13 14:02] MED LIST changes: +AMLODIPINE BESYL5 MG PO; +CYCLOBENZAPRINE5 MG PO; +DICLOFENAC SODI25 MG PO; +NEURONTIN600 MG PO; +PAROXETINE HCL10 MG PO; +SEROQUEL PO
== END 2016-12-14 11:31 | disposition home or self-care (01) | DRG 885 ==
LOC: P1S 23:49
DX: F33.9 Major depressive disorder, recurrent, unspecified (principal); F43.10 Post-traumatic stress disorder, unspecified